=== PATIENT | female | born 1995 | race American Indian/Alaskan Native ===

== ENCOUNTER 2018-09-15 18:46 | Emergency (ER) | payer SELFPAY ==
[2018-09-15 19:05] VITALS: BP 119/82
--- NOTE | 2018-09-15 20:31 | XRay Report ---
FINAL REPORT EXAM: XR FOOT 3+V LT HISTORY: tripped over large rocks TECHNIQUE: Frontal, lateral, oblique views left foot Comparison: None FINDINGS: There is the appearance of soft tissue swelling of the 5th toe. There is no clear evidence of a middle and distal phalanx of the 5th toe. There is a linear lucency through what appears to be a distal phalanx without evidence of cortication suggestive of a fracture of indeterminate age. The bony structures are otherwise unremarkable. IMPRESSION: 1. No clear evidence of a middle and distal phalanx of the 5th toe. 2. Appearance of what appears to be a fracture of a possible combined middle and distal phalanx of in determinate age. Correlation with clinical exam will be helpful. If further imaging is required, CT may be helpful.
--- NOTE | 2018-09-15 20:49 | Emergency Department Report ---
ED Lower Extremity HPI - General Chief Complaint: Extremity Injury, Lower Stated Complaint: POSSIBLE BROKE TOE Time Seen by Provider: 09/15/18 20:41 Source: patient Mode of arrival: Ambulatory Limitations: Physical Limitation - History of Present Illness Initial Comments: [age] -[place] female comes in stating she tripped on some large rocks while running and injured her left small toe that hit up against a rock. Patient woke up the next morning and so was discolored and swollen painful and throbbing. Patient reports that she took ibuprofen earlier today which she reports did not help much. She denies any past medical history reports she takes no medications on a daily basis and has no known drug allergies MD Complaint: foot injury -: days(s) (1) Injury: Foot: Left (5th) - Related Data Previous Rx's Medication Instructions Recorded Last Taken Type Ibuprofen [Motrin 600 MG tab] 600 mg PO Q8H PRN #24 tablet 09/15/18 Unknown Rx traMADol [Ultram 50 MG tab] 50 mg PO Q6HR PRN #12 tablet 09/15/18 Unknown Rx Allergies Allergy/AdvReac Type Severity Reaction Status Date / Time No Known Allergies Allergy Unverified 09/15/18 19:05 ED Review of Systems ROS: Stated complaint: POSSIBLE BROKE TOE Other details as noted in HPI ED Past Medical Hx - Past Medical History Previous Medical History?: No - Surgical History Past Surgical History?: No - Social History Smoking Status: Never Smoker Substance Use Type: None - Medications Home Medications: Home Medications Medication Instructions Recorded Confirmed Last Taken Type Ibuprofen [Motrin 600 MG tab] 600 mg PO Q8H PRN #24 tablet 09/15/18 Unknown Rx traMADol [Ultram 50 MG tab] 50 mg PO Q6HR PRN #12 tablet 09/15/18 Unknown Rx ED Physical Exam - General Limitations: Physical Limitation ED Course Vital Signs 09/15/18 18:57 Temperature 98.1 F Pulse Rate 94 H Blood Pressure 119/82 O2 Sat by Pulse 100 Oximetry ED Lower Extremity MDM - Radiology Data Radiology results: report reviewed FINAL REPORT EXAM: XR FOOT 3+V LT HISTORY: tripped over large rocks TECHNIQUE: Frontal, lateral, oblique views left foot Comparison: None FINDINGS: There is the appearance of soft tissue swelling of the 5th toe. There is no clear evidence of a middle and distal phalanx of the 5th toe. There is a linear lucency through what appears to be a distal phalanx without evidence of cortication suggestive of a fracture of indeterminate age. The bony structures are otherwise unremarkable. IMPRESSION: 1. No clear evidence of a middle and distal phalanx of the 5th toe. 2. Appearance of what appears to be a fracture of a possible combined middle and distal phalanx of indeterminate age. Correlation with clinical exam will be helpful. If further imaging is required, CT may be helpful. Transcribed By: ED Dictated By: MANUELA REDDY MD Electronically Authenticated By: MANUELA REDDY MD Signed Date/Time: 09/15/182033 DD/ 33 TD/TT: 09/15/182033 Critical care attestation.: If time is entered above; I have spent that time in minutes in the direct care of this critically ill patient, excluding procedure time. ED Disposition Clinical Impression: Fracture of fifth toe, left, closed Qualifiers: Encounter type: initial encounter Qualified Code(s): S92.502A - Displaced unspecified fracture of left lesser toe(s), initial encounter for closed fracture Disposition: DC-01 TO HOME OR SELFCARE Is pt being admited?: No Does the pt Need Aspirin: No Condition: Stable Instructions: Toe Fracture (ED) Additional Instructions: Please is take pain medication as needed. Please follow up with orthopedic I have listed their information below for your convenience Prescriptions: Ibuprofen [Motrin 600 MG tab] 600 mg PO Q8H PRN #24 tablet PRN Reason: Pain traMADol [Ultram 50 MG tab] 50 mg PO Q6HR PRN #12 tablet PRN Reason: Pain Referrals: PRIMARY CARE, [Primary Care Provider] - 3-5 Days WESTON SALEH MD [Staff Physician] - 3-5 Days
== END 2018-09-15 22:06 | disposition home or self-care (01) ==
LOC: ED 18:46
DX: S92.532A Displaced fracture of distal phalanx of left lesser toe(s), initial encounter for closed fracture (principal); W01.0XXA Fall on same level from slipping, tripping and stumbling without subsequent striking against object, initial encounter; Y93.89 Activity, other specified; Y92.89 Other specified places as the place of occurrence of the external cause; Y99.8 Other external cause status

== ENCOUNTER 2018-09-27 12:01 | Emergency (ER) | payer SELFPAY ==
[2018-09-27 13:22] LABS: Basophils % (Auto) 0.4 % (0.0-1.8); Eosinophils % (Auto) 0.7 % (0.0-4.3); Hematocrit 45.3 % (30.3-42.9); Hemoglobin 15.2 gm/dl (10.1-14.3); Lymphocytes # (Auto) 2.1 K/mm3 (1.2-5.4); Lymphocytes % (Auto) 31.3 % (13.4-35.0); Mean Corpuscular HGB Conc 34 % (30-34); Mean Corpuscular Volume 98 fl (79-97); Monocytes # (Auto) 0.5 K/mm3 (0.0-0.8); Monocytes % (Auto) 7.7 % (0.0-7.3); Platelet Count 310 K/mm3 (140-440); Red Blood Count 4.65 M/mm3 (3.65-5.03)
--- NOTE | 2018-09-27 13:33 | Emergency Department Report ---
ED Psych HPI - General Chief Complaint: Psych Stated Complaint: MH/SUICIDAL THOUGHTS Time Seen by Provider: 09/27/18 13:29 Source: patient Mode of arrival: Ambulatory Limitations: No Limitations - History of Present Illness Initial Comments: Patient is 23-year-old female that presents emergency room with complaints of suicidal ideations and depression and anxiety. Patient states she has a plan to run into traffic or overdose on drugs or wrist or jump off bridge. Patient states she did have the thoughts for about a month and they're worsening becomi ng more frequent. Patient is tearful at this time. Patient states she is having bad panic attacks and anxiety. Patient states her depression is worsening and well. Patient denies hallucinations. Patient states she is having racing thoughts. MD Complaint: suicidal ideation, feels depressed -: Sudden Associated Psychiatric Symptoms: depression, suicidal ideation, racing thoughts History of same: Yes Quality: constant Improves With: none Worsens With: none Context: not taking psychiatric, significant life stressor Associated Symptoms: denies other symptoms. denies: confusion, headache, shortness of breath, nausea, vomiting, syncope, insomnia Treatments Prior to Arrival: none If Self Harm: admits thoughts of, has plan - Related Data Previous Rx's Medication Instructions Recorded Last Taken Type Ibuprofen [Motrin 600 MG tab] 600 mg PO Q8H PRN #24 tablet 09/15/18 Unknown Rx traMADol [Ultram 50 MG tab] 50 mg PO Q6HR PRN #12 tablet 09/15/18 Unknown Rx Allergies Allergy/AdvReac Type Severity Reaction Status Date / Time No Known Allergies Allergy Unverified 09/15/18 19:05 ED Review of Systems ROS: Stated complaint: MH/SUICIDAL THOUGHTS Other details as noted in HPI Constitutional: denies: chills, fever Eyes: denies: eye pain, eye discharge, vision change ENT: denies: ear pain, throat pain Respiratory: denies: cough, shortness of breath, wheezing Cardiovascular: denies: chest pain, palpitations Endocrine: no symptoms reported Gastrointestinal: denies: abdominal pain, nausea, diarrhea Genitourinary: denies: urgency, dysuria, discharge Musculoskeletal: denies: back pain, joint swelling, arthralgia Skin: denies: rash, lesions Neurological: denies: headache, weakness, paresthesias Psychiatric: anxiety, depression, suicidal thoughts. denies: auditory hallucinations, visual hallucinations, homicidal thoughts Hematological/Lymphatic: denies: easy bleeding, easy bruising ED Past Medical Hx - Past Medical History Previous Medical History?: Yes Hx Psychiatric Treatment: Yes (Depression and anxiety) - Surgical History Past Surgical History?: No - Family History Family history: no significant - Social History Smoking Status: Current Every Day Smoker Substance Use Type: Alcohol, Marijuana - Medications Home Medications: Home Medications Medication Instructions Recorded Confirmed Last Taken Type Ibuprofen [Motrin 600 MG tab] 600 mg PO Q8H PRN #24 tablet 09/15/18 Unknown Rx traMADol [Ultram 50 MG tab] 50 mg PO Q6HR PRN #12 tablet 09/15/18 Unknown Rx ED Physical Exam - General Limitations: No Limitations General appearance: alert, in no apparent distress - Head Head exam: Present: atraumatic, normocephalic - Eye Eye exam: Present: normal appearance - ENT ENT exam: Present: mucous membranes moist - Neck Neck exam: Present: normal inspection - Respiratory Respiratory exam: Present: normal lung sounds bilaterally. Absent: respiratory distress - Cardiovascular Cardiovascular Exam: Present: regular rate, normal rhythm. Absent: systolic murmur, diastolic murmur, rubs, gallop - GI/Abdominal GI/Abdominal exam: Present: soft, normal bowel sounds - Extremities Exam Extremities exam: Present: normal inspection - Back Exam Back exam: Present: normal inspection - Neurological Exam Neurological exam: Present: alert, oriented X3 - Psychiatric Psychiatric exam: Present: depressed, suicidal ideation - Skin Skin exam: Present: warm, dry, intact, normal color. Absent: rash ED Course Vital Signs 09/27/18 12:30 Temperature 97.8 F Pulse Rate 93 H Respiratory 18 Rate Blood Pressure 141/85 O2 Sat by Pulse 97 Oximetry - Reevaluation(s) Reevaluation #1: Patient placed on 1013. We'll consult mental health 09/27/18 13:33 Patient is medically cleared. Patient will remain on 1013 until excepted into an appropriate psychiatric facility. 09/27/18 15:28 ED Medical Decision Making - Lab Data Result diagrams: 09/27/18 13:07 09/27/18 13:07 - Medical Decision Making Patient's 23-year-old female that presents to emergency room with suicidal ideation and depression and anxiety. Patient placed on 1013. Patient will remain on 1013 even though patient is medically clear. Patient will be held in the ER until accepted to appropriate psychiatric facility. Mental health consulted. Patient's labs unremarkable. - Differential Diagnosis suicidal ideation. Depression. Anxiety Critical care attestation.: If time is entered above; I have spent that time in minutes in the direct care of this critically ill patient, excluding procedure time. ED Disposition Clinical Impression: Suicidal ideation Depression Qualifiers: Depression Type: unspecified Qualified Code(s): F32.9 - Major depressive disorder, single episode, unspecified Disposition: DC/TX-65 PSY HOSP/PSY UNIT Is pt being admited?: No Does the pt Need Aspirin: No Condition: Stable Referrals: PRIMARY CARE, [Primary Care Provider] - 3-5 Days Time of Disposition: 15:29
[2018-09-27 13:43] LABS: Alanine Aminotransferase 8 units/L (7-56); Albumin 5.2 g/dL (3.9-5); BUN/Creatinine Ratio 16; Blood Urea Nitrogen 11 mg/dL (7-17); Calcium 9.6 mg/dL (8.4-10.2); Hemolysis Index 10
[2018-09-27 15:56] LABS: HCG Qualitative,Urine Negative (Negative)
[2018-09-27 16:02] LABS: Bilirubin,Urine NEG (Negative); Blood,Urine NEG (Negative); Color,Urine Yellow (Yellow); Mucus,Urine 3+ /HPF; Protein,Urine <15 mg/dL mg/dL (Negative); Urobilinogen,Urine < 2.0 mg/dL (<2.0)
[2018-09-27 16:11] LABS: Amphetamine Screen,Urine PRESUMPTIVE NEGATIVE; Methadone Screen,Urine PRESUMPTIVE NEGATIVE; Opiate Screen,Urine PRESUMPTIVE NEGATIVE
[2018-09-27 16:23] LABS: Benzodiazepines Screen,Urine PRESUMPTIVE POSITIVE; Cannabinoid Screen,Urine PRESUMPTIVE POSITIVE; Cocaine Screen,Urine PRESUMPTIVE POSITIVE
[2018-09-27] MEDS ORDERED: XANAX PO ONE (17:32)
[2018-09-27] MEDS ORDERED: GEODON IM PRN (20:55)
[2018-09-27] MEDS ORDERED: GEODON IM ONE (20:56)
[2018-09-28] MEDS ORDERED: XANAX PO ONE (13:50)
--- NOTE | 2018-09-28 14:45 | Consultation ---
History of Present Illness - Reason for Consult Consult date: 09/28/18 Reason for consult: Mental Health Evaluation Requesting physician: NATHAN KENDRICK III - Chief Complaint Chief complaint: "I need help" - History of Present Psychiatric Illness 23-year-old AA female that presents emergency room with complaints of suicidal ideations and depression and anxiety. Today the patient is calm and cooperative during the assessment. She stated that she have a hx of anxiety and takes Xanax sometimes. She stated that she is having major issues with life stressors that is overwhelming. She stated that she isn't sure what she said yesterday during triage, but felt a "certain way" when she arrived to the ER. She stated that she feels "sad and hopeless" about her issues. She rate her depression/anxiety 8/10, with 10 being the worse. She denies SI/HI's and AVH's. She acknowledged recreational drug use and erratic sleep. She denies alcohol consumption (etoh). Medications and Allergies Allergies Allergy/AdvReac Type Severity Reaction Status Date / Time No Known Allergies Allergy Verified 09/27/18 21:25 Home Medications Medication Instructions Recorded Confirmed Last Taken Type No Known Home Medications [No 09/27/18 09/27/18 Unknown History Reported Home Medications] Active Meds: Active Medications Ziprasidone (Geodon) 20 mg IM BID PRN PRN Reason: Agitation Stop: 10/01/18 20:54 Last Admin: 09/27/18 20:55 Dose: 20 mg Documented by: Past psychiatric history - Past Medical History Past Medical History: No medical history Past Surgical History: No surgical history - past Psychiatric treatment and history psychiatric treatment history: Hx of Anxiety DO. Denies a fam psy hx. Mental Status Exam - Vital signs Last Vital Signs Temp 97.8 F 09/27/18 19:00 Pulse 76 09/27/18 19:00 Resp 18 09/27/18 19:00 BP 117/99 09/27/18 19:00 Pulse Ox 99 09/27/18 19:00 - Exam Narrative exam: MSE: Appearance: calm, cooperative Behavior: regular eye contact Speech: regular rate and tone Mood: "okay" Affect: flat Thought Process: circumstantial Thought Content: denies SI/HI's and AVH's Motor Activity: sitting up in bed Cognition: A/O x 3 Insight: fair Judgment: variable Results Result Diagrams: 09/27/18 13:07 09/27/18 13:07 All other labs normal. Assessment and Plan Assessment and plan: Impression: MDD. Hx of MIGUEL. Substance Use DO (cocaine). Cannabis Use DO. Today the patient is calm and cooperative during the assessment. DDx:: R/O Bipolar DO, R/O Substance Induced Mood DO Recommendation/Plan: Continue 1013 and start Remeron 15 mg PO HS for depression/anxiety and Vistaril 25 mg PO BID for anxiety. Discussed possible suicidality/medication induced anat with the patient reference Remeron. Dispo: The patient was referred to inpatient psy services. Staffed with Dr Boyd.
[2018-09-28] MEDS: BUSPAR PO SCH ×2 (17:00→22:21)
[2018-09-28] MEDS: REMERON PO SCH (22:21)
[2018-09-29] MEDS: BUSPAR PO SCH ×2 (10:55→22:10)
--- NOTE | 2018-09-29 13:10 | Progress Note ---
Subjective - Reason for Consult Consult date: 09/29/18 Reason for consult: Psychiatry Follow-up - Chief Complaint Chief complaint: "I got some sleep" 23-year-old AA female that presents emergency room with complaints of suicidal ideations and depression and anxiety. Today the patient is calm and cooperative during the assessment. She stated that she got rest last night and feel a "little better" mentally. She denies SI/HI's and AVH's. She denies any side effects of her medications. Mental Status Exam - Vital signs Last Vital Signs Temp 98.1 F 09/29/18 08:45 Pulse 69 09/29/18 08:45 Resp 18 09/29/18 08:45 BP 115/60 09/29/18 08:45 Pulse Ox 99 09/29/18 08:45 - Exam Narrative exam: MSE: Appearance: calm, cooperative Behavior: regular eye contact Speech: regular rate and tone Mood: "better" Affect: congruent to mood Thought Process: circumstantial Thought Content: denies SI/HI's and AVH's Motor Activity: sitting up in bed Cognition: A/O x 3 Insight: fair Judgment: fair Assessment and Plan Impression: MDD. Hx of MIGUEL. Substance Use DO (cocaine). Cannabis Use DO. Today the patient is calm and cooperative during the assessment. DDx:: R/O Bipolar DO, R/O Substance Induced Mood DO Recommendation/Plan: Reevaluate the patient's 1013 in 24 hours. ontinue 1013 and start Remeron 15 mg PO HS for depression/anxiety and Vistaril 25 mg PO BID for anxiety. Discussed possible suicidality/medication induced anat with the patient reference Remeron. Dispo: If the patient's 1013 is rescinded, she can follow up at [facility] for outpatient psy services. Staffed with Dr Boyd.
[2018-09-29] MEDS: REMERON PO SCH (22:11)
[2018-09-30] MEDS: BUSPAR PO SCH ×2 (10:51→21:58)
[2018-09-30] MEDS: REMERON PO SCH (21:58)
[2018-10-01 10:22] VITALS: BP 122/77
--- NOTE | 2018-10-01 10:48 | Progress Note ---
Subjective - Reason for Consult Consult date: 10/01/18 Reason for consult: Psychiatry Follow-up - Chief Complaint Chief complaint: "Hello" 23-year-old AA female that presents emergency room with complaints of suicidal ideations and depression and anxiety. Today the patient is calm and cooperative during the assessment. She stated that she feels much better and look forward to being discharged. She stated that she would like a referral from outpatient psy services. Per collateral from Brissa the patient's boyfriend, he stated that the patient was "stressed" prior to coming to the ER. He denies any previous suicide attempts in the past by patient. He stated that he will be the patient's support system if discharged. The patient denies SI/HI's and AVH's. She denies any side effects of her medications. Mental Status Exam - Vital signs Last Vital Signs Temp 97.6 F 10/01/18 10:03 Pulse 64 10/01/18 10:03 Resp 18 10/01/18 10:03 BP 122/77 10/01/18 10:03 Pulse Ox 100 10/01/18 10:03 - Exam Narrative exam: MSE: Appearance: calm, cooperative Behavior: regular eye contact Speech: regular rate and tone Mood: "okay" Affect: congruent to mood Thought Process: linear Thought Content: denies SI/HI's and AVH's Motor Activity: sitting up in bed Cognition: A/O x 3 Insight: appropriate Judgment: appropriate Assessment and Plan Impression: MDD. Hx of MIGUEL. Substance Use DO (cocaine). Cannabis Use DO. Today the patient is calm and cooperative during the assessment. The patient is no threat to self. DDx:: R/O Bipolar DO, R/O Substance Induced Mood DO Recommendation/Plan: Rescind 1013 and continue Remeron 15 mg PO HS for depression/anxiety and Vistaril 25 mg PO BID for anxiety. Discussed possible suicidality/medication induced anat with the patient reference Remeron. Discussed the importance to abstain from recreational drug use with the patient. Dispo:The patient can follow up with [facility] for outpatient psy services. Will staff with Dr Boyd.
[2018-10-01] MEDS: BUSPAR PO SCH (11:00)
--- NOTE | 2018-10-01 11:34 | Emergency Department Report ---
Blank Doc - Documentation Documentation: I was asked to assist Miss Leos for possible discharge. Patient was admitted to the emergency room for suicidal ideation. Patient today's calm. She stated that she is looking for work today to be discharged and continue with her life and she wanted to follow up as an outpatient. She denied any suicidal, homicidal ideation. Patient also denied any auditory or visual hallucinations. Patient will be discharged home to follow-up as an outpatient. Patient was seen and evaluated by our psychiatric team and advised to discharge home.
== END 2018-10-01 12:31 | disposition home or self-care (01) ==
LOC: ED 12:01 → EEVIPCON 12:01 → ED 10-01 12:31
DX: F32.9 Major depressive disorder, single episode, unspecified (principal); F41.9 Anxiety disorder, unspecified; F17.200 Nicotine dependence, unspecified, uncomplicated
CPT/HCPCS: 36415; 80053; 80307; 81001; 81025; 84703; 85025; 96372; 99284; G0480; J3486; 80320